=== PATIENT | female | born 1955 | race Caucasian/White ===

== ENCOUNTER 2020-10-18 10:27 | Emergency (ER) | payer MEDICARE ==
[~2020-10-18] VITALS: Ht 167.6 cm; Wt 69.8 kg
[2020-10-18 10:40] VITALS: BP 133/78
--- NOTE | 2020-10-18 11:33 | NUR ---
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
[2020-10-18] MEDS ORDERED: FAMOTIDINE 20 MG TABLET PO ONE (12:30)
[2020-10-18] MEDS ORDERED: DIPHENHYDRAMINE 50 MG/ML, 1ML IM ONE (12:30)
[2020-10-18] MEDS ORDERED: FAMOTIDINE 20 MG TABLET ONE (12:34)
[2020-10-18] MEDS ORDERED: DIPHENHYDRAMINE 50 MG/ML, 1ML ONE (12:34)
== END 2020-10-18 13:49 | disposition home or self-care (01) ==
LOC: ED 12:00
DX: R21 Rash and other nonspecific skin eruption (principal); T37.8X5A Adverse effect of other specified systemic anti-infectives and antiparasitics, initial encounter; Y92.9 Unspecified place or not applicable
CPT/HCPCS: 96372; 99283; J1200; J7512